=== PATIENT | male | born 1980 | race American Indian/Alaskan Native ===

== ENCOUNTER 2018-03-25 08:17 | Emergency (ER) | payer BC, OTHER ==
[2018-03-25 08:17] VITALS: BMI 27.4
[2018-03-25 08:24] VITALS: BP 135/84; PULSE 99; RESP 17; TEMP 97.8; O2SAT 97
--- NOTE | 2018-03-25 08:43 | C.PDOC ---
Time Seen by Provider: 03/25/18 08:18 Chief Complaint (Nursing): Flu-like Symptoms Past Medical History Vital Signs: Last Vital Signs Temp 97.8 F 03/25/18 08:22 Pulse 99 H 03/25/18 08:22 Resp 17 03/25/18 08:22 BP 135/84 03/25/18 08:22 Pulse Ox 97 03/25/18 08:22 - Medical History PMH: Denies: Chronic Kidney Disease Family History: States: Unknown Family Hx - Social History Hx Tobacco Use: No Hx Alcohol Use: Yes (couple beers) Hx Substance Use: No - Immunization History Hx Tetanus Toxoid Vaccination: No Hx Influenza Vaccination: No Hx Pneumococcal Vaccination: No ED Course And Treatment O2 Sat by Pulse Oximetry: 97 Disposition Counseled Patient/Family Regarding: Studies Performed, Diagnosis, Need For Followup, Rx Given - Disposition Referrals: [facility] [Outside] Disposition: HOME/ ROUTINE Disposition Time: 09:00 Condition: STABLE Additional Instructions: FOLLOW UP WITH YOUR DOCTOR/CLINIC IN 1-2 DAYS DRINK PLENTY OF WATER, USE MEDICATIONS DIRECTED RETURN TO ER IF SYMPTOMS WORSEN Prescriptions: Benzonatate [Tessalon Perles] 100 mg PO BID PRN #15 sgl PRN Reason: Cough Oseltamivir Phosphate [Tamiflu] 75 mg PO BID #9 capsule Instructions: Viral Syndrome (DC) Forms: [facility] (Chinese), Work Excuse Print Language: SLOVAK - Clinical Impression Clinical Impression: Influenza-like illness
== END 2018-03-25 09:01 | disposition home or self-care (01) ==
LOC: C.ER 08:17
DX: J11.1 Influenza due to unidentified influenza virus with other respiratory manifestations (principal)

== ENCOUNTER 2018-07-28 06:40 | Outpatient (CLI) | payer BC | END 2018-07-28 06:41 | disposition home or self-care (01) | LOC: C.LAB 06:40 | DX: Z00.00 Encounter for general adult medical examination without abnormal findings (principal); Z71.3 Dietary counseling and surveillance ==